=== PATIENT | female | born 1960 | race Caucasian/White ===

== ENCOUNTER → 2017-06-16 | Outpatient (CLI) | payer BC ==
--- NOTE | 2017-06-16 22:17 | US ---
EXAMINATION TYPE: US carotid duplex BILAT DATE OF EXAM: 06/16/2017 COMPARISON: NONE CLINICAL HISTORY: R42 Dizziness E78.5 Hyperlipidemia. Dizziness, chest tightness, nausea EXAM MEASUREMENTS: RIGHT: Peak Systolic Velocity (PSV) cm/sec ----- Right CCA: 76.5 ----- Right ICA: 116.0 ----- Right ECA: 104.3 ICA/CCA ratio: 1.5 RIGHT: End Diastole cm/sec ----- Right CCA: 31.4 ----- Right ICA: 42.2 ----- Right ECA: 22.8 LEFT: Peak Systolic Velocity (PSV) cm/sec ----- Left CCA: 78.7 ----- Left ICA: 175.6 ----- Left ECA: 83.1 ICA/CCA ratio: 2.2 LEFT: End Diastole cm/sec ----- Left CCA: 29.2 ----- Left ICA: 75.7 ----- Left ECA: 14.9 VERTEBRALS (direction of flow): Right Vertebral: Antegrade Left Vertebral: Antegrade Mild plaque right bifurcation. Moderate plaque left bifurcation, increased velocities left ICA Grayscale images show mild to minimal eccentric plaque at right carotid bulb with slightly more moder ate to severe noncalcified eccentric plaque at left carotid bulb. Increased peak systolic velocity an d end-diastolic velocities in left internal carotid arteries present. There is abnormal ratio noted. IMPRESSION: Asymmetrically prominent moderate to severe plaque left carotid bulb with hemodynamicall y significant stenosis felt present, degree of stenosis is estimated 50-69%. Further investigation wi th CTA or MRA of the neck is advised to confirm. Criteria for Assigning % of Stenosis / Diameter reduction (Estimation based on the indirect measurements of the internal carotid artery velocities (ICA PSV). 3. 50 to 69% stenosis=ICA PSV of 125 to 230 cm/s: ration 2.0 ? 4.0: ICA EDV 40-100 cm/s.
== END ==
LOC: RADUSWWP 16:46
PROVIDERS: ATTEND Family Medicine
DX: I65.22 Occlusion and stenosis of left carotid artery (principal)
CPT/HCPCS: 93880

== ENCOUNTER → 2017-06-29 | Outpatient (CLI) | payer BC ==
--- NOTE | 2017-06-29 21:57 | CT ---
EXAMINATION TYPE: CT brain wo con DATE OF EXAM: 06/29/2017 COMPARISON: NONE HISTORY: 56-year-old female Dizziness x 2 months with neck, arm and back pain. TECHNIQUE: Examination was done in axial plane without intravenous contrast. Coronal and sagittal r econstructions performed. CT DLP: 1081.00 mGycm Automated exposure control for dose reduction was used. FINDINGS: There is no evidence of acute intracranial hemorrhage, acute ischemic changes, mass, mass-effect, or extra-axial fluid collection. There is no effacement of cerebral sulci or basal subarachnoid cister ns. There is no hydrocephalus. There is no midline shift. Perez-white matter distinction is preserv ed. Leftward nasal septal deviation. Mild mucosal thickening within the ethmoid air cells. Additional muc osal thickening along the posterior wall of the left sphenoid sinus. Orbits and globes are intact. Ma stoid air cells well pneumatized. IMPRESSION: No acute intracranial abnormality seen. Mild chronic paranasal sinus disease.
--- NOTE | 2017-06-29 22:06 | CT ---
EXAMINATION TYPE: CT angio neck DATE OF EXAM: 06/29/2017 COMPARISON: Carotid ultrasound 06/16/2017. HISTORY: 56-year-old female dizziness x 2 months with neck, arm and back pain. TECHNIQUE: Contiguous axial scanning of the neck performed with IV Contrast, patient injected with 65 mL of Omnipaque 350. Coronal/sagittal MIP reconstructions performed. 3-D reconstructions generated o n a dedicated workstation. Detailed analysis with three-vessel probe. CT DLP: 246.30 mGycm Automated exposure control for dose reduction was used. FINDINGS: There is conventional arch vessel branching anatomy. The great vessel origins are patent. The vertebral arteries are codominant and patent throughout the course. The right common carotid artery and right internal carotid artery are widely patent. Left common carotid artery is patent. There is soft plaque narrowing the carotid bulb to 2.5 mm. The patent upper cervical internal carotid artery measures 4.0 mm. This qualifies as approximate 40% sten osis. The remainder of the internal carotid artery is patent. Reversal of the normal cervical lordosis. IMPRESSION: SOFT PLAQUE AT THE LEFT CAROTID BULB CAUSING MILD, 40% PROXIMAL LEFT ICA STENOSIS BY NASCET CRITERIA. NO HEMODYNAMICALLY SIGNIFICANT ICA STENOSIS IDENTIFIED.
== END | disposition home or self-care (01) ==
LOC: RADCTMAIN 16:35
PROVIDERS: ATTEND Family Medicine
DX: I65.22 Occlusion and stenosis of left carotid artery (principal); J34.89 Other specified disorders of nose and nasal sinuses
CPT/HCPCS: 70450; 70498; Q9967

== ENCOUNTER → 2018-09-14 | Outpatient (CLI) | payer BC ==
--- NOTE | 2018-09-14 11:59 | CT ---
EXAMINATION TYPE: CT abdomen pelvis wo con DATE OF EXAM: 09/14/2018 COMPARISON: None HISTORY: Microscopic hematuria with right flank pain. CT DLP: 953 mGycm Automated exposure control for dose reduction was used. TECHNIQUE: Helical acquisition of images was performed from the lung bases through the pelvis. FINDINGS: LUNG BASES: No significant abnormality is appreciated. LIVER/GB: Hepatic parenchyma is diffusely hypoattenuated in comparison to that of the spleen, most co mmonly seen in hepatic steatosis. This finding limits evaluation for hepatic masses. There is a hypoa ttenuated too small to accurately characterize 7 mm lesion on series 3 image 30 and segment 4A of the liver. No intrahepatic biliary ductal dilatation. No cholelithiasis. PANCREAS: No significant abnormality is seen. SPLEEN: No significant abnormality is seen. ADRENALS: There is is uniform thickening of the left adrenal gland that is low-density and favored to represent adrenal gland hyperplasia. Right adrenal gland is unremarkable KIDNEYS: There is no evidence of nephrolithiasis nor hydronephrosis of either kidney. No perinephric fluid collection. FREE AIR: No free air is visualized REPRODUCTIVE ORGANS: Uterus appears surgically absent URINARY BLADDER: No significant abnormality is seen. ADENOPATHY: No greater than 1 cm short axis lymph nodes are seen within the abdomen or pelvis. OSSEOUS STRUCTURES: Moderate femoral acetabular arthropathy and mild multilevel degenerative changes of the spine are noted. BOWEL: No significant abnormality is seen. OTHER: Moderate atherosclerosis is seen of the abdominal aorta and its branches. Infrarenal focal ect jeffrey is seen of the femoral aorta measuring up to 2.2 cm without aneurysmal dilatation. A few displac ed calcifications medially on series 3 image 61 and centrally on image 60 suggest chronic dissection at this area of saccular ectasia also demonstrated on coronal series 5 image 41. There is a very small fat filled periumbilical hernia. IMPRESSION: 1. HEPATIC STEATOSIS WITH 7 MM TOO SMALL TO ACCURATELY CHARACTERIZE SOLITARY HEPATIC LESION. 2. 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 3. NO EVIDENCE OF HYDRONEPHROSIS OR NEPHROLITHIASIS BILATERALLY.
== END | disposition home or self-care (01) ==
LOC: RADCTMAIN 10:58
PROVIDERS: ATTEND Family Medicine
DX: K76.0 Fatty (change of) liver, not elsewhere classified (principal); I77.819 Aortic ectasia, unspecified site; M54.5 Low back pain
CPT/HCPCS: 74176

== ENCOUNTER → 2025-02-07 | Outpatient (CLI) | payer BC ==
--- NOTE | 2025-02-07 21:45 | US ---
EXAMINATION TYPE: US extremity nonvasc mass LT DATE OF EXAM: 02/07/2025 COMPARISON: NONE CLINICAL INDICATION: Female, 64 years old with history of M79.662 PAIN IN LEFT LOWER LEG; pt had a fa ll Tuesday (01/27/2025), pain, swelling & bruising x 2 weeks TECHNIQUE: Left calf & vanegas scanned AOC FINDINGS: Hand Striper notes: ?Complex fluid area seen on Left vanegas AOC measurin.1x0.6x1.6cm IMPRESSION: Images suggest a poorly defined pretibial hematoma at the area of concern measuring up to 4.6 cm long by 5 mm thick by 2.1 cm wide. Recommend radiographic correlation to exclude any underlyi ng cortical fracture. Otherwise, clinical follow-up and ultrasound in 3-4 weeks to ensure gradual inv olution. [facility], , 02/07/2025 9:43 PM
== END | disposition home or self-care (01) ==
LOC: RADUSWWP 10:00
PROVIDERS: ATTEND Family Medicine
DX: M79.662 Pain in left lower leg (principal)

== ENCOUNTER → 2025-04-19 | Outpatient (CLI) | payer BC ==
--- NOTE | 2025-04-19 11:34 | MM ---
Reason for Exam: Screening (asymptomatic). Last mammogram was performed 12 year(s) and 6 month(s) ago. Patient History: Menarche at age 13. First Full-Term at age 31. Late child-bearing (after 31). Left ovary removed at age 47. Right ovary removed at age 47. Hysterectomy at age 47. Postmenopausal. Patient used Estrogen for 1 year. Patient used Progesterone for 1 year. Maternal grandmother had breast cancer. Risk Values: Harika 5 year model risk: 2.2%. NCI Lifetime model risk: 9.1%. Prior Study Comparison: 08/27/2003 Bilateral Screening Mammogram, [facility]. 12/23/2005 Bilateral Screening Mammogram, [facility]. 10/12/2012 Bilateral Screening Mammogram, [facility]. Tissue Density: There are scattered areas of fibroglandular density. Findings: Analyzed By CAD. There is asymmetric increased fatty replacement in both breasts since most recent prior mammogram. There is focal asymmetry in the upper aspect of the left breast. No corresponding abnormality on cc view. Overall Assessment: Incomplete: need additional imaging evaluation, BI-RAD 0 Management: Diagnostic Mammogram of the left breast. Return for additional spot and true lateral views left breast. Favor summation density must rule out true lesion. Patient should continue monthly self-breast exams. A clinical breast exam by your physician is recommended on an annual basis. This exam should not preclude additional follow-up of suspicious palpable abnormalities. Note on Harika scores and lifetime risk: 1. A Harika score greater than 3% is considered moderate risk. If this is the case, consider specialist referral to assess eligibility for a risk reducing agent. 2. If overall lifetime risk for the development of breast cancer is 20% or higher, the patient may qualify for future screening with alternating mammogram and breast MRI. [facility], , 04/19/2025 11:31 AM. Electronically signed and approved by: Yash Josue M.D.
== END | disposition home or self-care (01) ==
LOC: RADMAMWWP 09:33
PROVIDERS: ATTEND Family Medicine
DX: Z12.31 Encounter for screening mammogram for malignant neoplasm of breast (principal); R92.323 Mammographic fibroglandular density, bilateral breasts; Z78.0 Asymptomatic menopausal state; Z80.3 Family history of malignant neoplasm of breast
CPT/HCPCS: 77067